=== PATIENT | female | born 1980 | race Hispanic/Latino ===

== ENCOUNTER 2018-01-20 22:47 | Emergency (ER) | payer MEDICAID, OTHER ==
[2018-01-20 23:18] LABS: BASOPHILS % (AUTO) 0.4 % (0.0-5.0); EOSINOPHILS % (AUTO) 0.1 % (0.0-8.0); HEMATOCRIT 35.5 % (36-48); LYMPHOCYTES % (AUTO) 8.2 % (21.0-51.0); MEAN CORPUSCULAR HEMOGLOBIN 24.5 pg (27.0-33.0); MEAN CORPUSCULAR HGB CONC 32.9 g/dL (32.0-36.0); MEAN CORPUSCULAR VOLUME 74.5 fL (79-99); MONOCYTES % (AUTO) 4.4 % (3.0-13.0); NEUTROPHILS % (AUTO) 86.9 % (40.0-77.0); PLATELET COUNT (AUTO) 240 K/uL (130-400); RED BLOOD CELL COUNT(AUTO) 4.77 MIL/uL (4.00-5.50); WHITE BLOOD COUNT (AUTO) 12.7 K/uL (4.8-10.8)
[2018-01-20 23:21] LABS: APPEARANCE,URINE Turbid (CLEAR); BILIRUBIN,URINE Negative (NEGATIVE); COLOR,URINE Dark Yellow (YELLOW); GLUCOSE, URINE (UA) Negative (NEGATIVE); KETONES,URINE Trace mg/dL (NEGATIVE); LEUKOCYTE ESTERASE ,URINE Large (NEGATIVE); NITRATE,URINE Negative (NEGATIVE); OCCULT BLOOD,URINE Moderate (NEGATIVE); PROTEIN,URINE POS 1+ (NEGATIVE)
[2018-01-20 23:30] LABS: CREATININE 0.9 mg/dL (0.5-1.5); POTASSIUM 3.6 mmol/L (3.5-5.1)
[2018-01-20 23:34] LABS: ALBUMIN 3.2 g/dL (3.5-5.0); BILIRUBIN,TOTAL 0.4 mg/dL (0.2-1.0)
[2018-01-20 23:37] LABS: BACTERIA,URINE Few /HPF (None Seen); MUCUS,URINE Few LPF (None Seen); SQUAMOUS EPITHELIAL CELL,UR Many /HPF (0-2)
[2018-01-20] MEDS ORDERED: SULFAMETHOX-TMP DS 800/160 TAB ONE (23:58)
[2018-01-20] MEDS ORDERED: KETOROLAC TROMETHAMINE 15MG/ML ONE (23:58)
== END 2018-01-21 01:34 | disposition home or self-care (01) ==
LOC: EDH 22:47
DX: R10.9 Unspecified abdominal pain (principal); N30.00 Acute cystitis without hematuria; R19.7 Diarrhea, unspecified; Z98.51 Tubal ligation status
CPT/HCPCS: 36415; 80053; 81001; 81025; 82150; 83690; 85025; 96361; 96374; 99284; J1885

== ENCOUNTER 2018-10-18 20:13 | Emergency (ER) | payer SELFPAY ==
[2018-10-18 21:23] LABS: APPEARANCE,URINE CLOUDY (CLEAR); BILIRUBIN,URINE NEGATIVE (NEGATIVE); COLOR,URINE YELLOW (YELLOW); GLUCOSE, URINE (UA) NEGATIVE (NEGATIVE); KETONES,URINE NEGATIVE (NEGATIVE); LEUKOCYTE ESTERASE ,URINE MODERATE (NEGATIVE); NITRATE,URINE POSITIVE (NEGATIVE); OCCULT BLOOD,URINE MODERATE (NEGATIVE); PH,URINE 5.5 (5.0-8.0); PROTEIN,URINE NEGATIVE (NEGATIVE); UROBILINOGEN,URINE 0.2 mg/dL (0.2-1.0)
[2018-10-18 21:30] LABS: BACTERIA,URINE Moderate /HPF (None Seen)
[2018-10-18 21:31] LABS: SQUAMOUS EPITHELIAL CELL,UR Moderate /HPF (0-2)
[2018-10-18 21:40] LABS: HCG,QUAL RESULT NEGATIVE (NEGATIVE)
[2018-10-18] MEDS ORDERED: KETOROLAC TROMETHAMINE 60 MG/2 ML VIAL ONE (21:46)
[2018-10-18] MEDS ORDERED: CYCLOBENZAPRINE HCL 10 MG TABLET ONE (21:46)
== END 2018-10-18 22:48 | disposition home or self-care (01) ==
LOC: EDH 20:13
DX: N39.0 Urinary tract infection, site not specified (principal); M54.5 Low back pain; Z98.51 Tubal ligation status
CPT/HCPCS: 81001; 81025; 96372; 99283; J1885

== ENCOUNTER 2021-10-21 08:12 | Emergency (ER) | payer OTHER, SELFPAY ==
[~2021-10-21] VITALS: Ht 165.1 cm; Wt 149.7 kg
[2021-10-21] MEDS ORDERED: KETOROLAC 30MG VIAL (30MG/ML) ONE (08:42)
[2021-10-21 08:46] LABS: BASOPHILS % (AUTO) 0.1 % (0.0-5.0); EOSINOPHILS % (AUTO) 1.3 % (0.0-8.0); HEMATOCRIT 39.8 % (36-48); LYMPHOCYTES % (AUTO) 15.2 % (21.0-51.0); MEAN CORPUSCULAR HEMOGLOBIN 24.7 pg (27.0-33.0); MEAN CORPUSCULAR HGB CONC 31.9 g/dL (32.0-36.0); MEAN CORPUSCULAR VOLUME 77.3 fL (79-99); NEUTROPHILS % (AUTO) 78.9 % (40.0-77.0); PLATELET COUNT (AUTO) 278 K/uL (130-400); RED BLOOD CELL COUNT(AUTO) 5.15 MIL/uL (4.00-5.50); RED CELL DISTRIBUTION WIDTH 14.8 % (11.0-15.5); WHITE BLOOD COUNT (AUTO) 11.1 K/uL (4.8-10.8)
[2021-10-21] MEDS ORDERED: KETOROLAC 30MG VIAL (30MG/ML) IVP SCH (09:00)
[2021-10-21 09:17] LABS: APPEARANCE,URINE SL CLOUDY (CLEAR); BILIRUBIN,URINE NEGATIVE (NEGATIVE); GLUCOSE, URINE (UA) >=1000 mg/dL (NEGATIVE); KETONES,URINE 15 mg/dL (NEGATIVE); LEUKOCYTE ESTERASE ,URINE TRACE (NEGATIVE); NITRATE,URINE POSITIVE (NEGATIVE); OCCULT BLOOD,URINE NEGATIVE (NEGATIVE); PROTEIN,URINE 100 mg/dL (NEGATIVE); UROBILINOGEN,URINE >=8.0 mg/dL (0.2-1.0)
[2021-10-21 09:20] LABS: HCG,QUAL RESULT NEGATIVE (NEGATIVE)
[2021-10-21 09:21] LABS: COLOR,URINE ORANGE (YELLOW)
[2021-10-21 09:22] VITALS: BP 119/74
[2021-10-21 09:24] LABS: BACTERIA,URINE Rare /HPF (None Seen); SQUAMOUS EPITHELIAL CELL,UR Many /HPF (0-2)
[2021-10-21] MEDS: CEFTRIAXONE 1G VIAL IVP SCH ×2 (10:00→10:20)
[2021-10-21] MEDS ORDERED: MACR100 PO (10:11)
== END 2021-10-21 10:20 | disposition home or self-care (01) ==
LOC: EDH 08:12
DX: N39.0 Urinary tract infection, site not specified (principal); Z79.1 Long term (current) use of non-steroidal anti-inflammatories (NSAID)
CPT/HCPCS: 36415; 81001; 81025; 85025; 87077; 87088; 87186; 96374; 96375; 99284; J0696; J1885